=== PATIENT | male | born 1980 | race Caucasian/White ===

== ENCOUNTER → 2023-06-16 12:03 | Outpatient (REF) | payer OTHER, SELFPAY | LOC: DHCBC/DCA 12:03 | PROVIDERS: ATTENDING PHYSICIAN Internal Medicine Cardiovascular Disease; FAMILY PHYSICIAN Family Medicine | DX: I10 Essential (primary) hypertension (principal); I51.7 Cardiomegaly; R93.1 Abnormal findings on diagnostic imaging of heart and coronary circulation | CPT/HCPCS: 78452; 93017; A9500 ==

== ENCOUNTER → 2025-01-14 07:43 | Outpatient (REF) | payer OTHER, SELFPAY | LOC: HWRCS 07:43 | PROVIDERS: ATTENDING PHYSICIAN Physician Assistant Medical; FAMILY PHYSICIAN Family Medicine | DX: I25.10 Atherosclerotic heart disease of native coronary artery without angina pectoris (principal); R07.9 Chest pain, unspecified | CPT/HCPCS: 78452; 93017; A9500 ==

== ENCOUNTER 2025-01-15 07:45 | Day surgery (SDC) | payer OTHER, SELFPAY ==
[2025-01-15] VITALS (13 sets, daily range): BP systolic 102–147; BP diastolic 65–91; BMI 34.7
[2025-01-15 08:10] LABS: Hematocrit 42.6 % (39.0-52.0); Hemoglobin 14.2 g/dL (13.0-18.0); Mean Corp Hgb Conc. 33.3 g/dL (33.0-37.0); Mean Corpuscular Volume 82.2 fL (80.0-94.0); Platelet Count 319 10^3/uL (130-400); Red Cell Dist. Width 12.4 % (11.5-14.5)
[2025-01-15 08:21] LABS: INR 1.03; PT 13.8 Sec (11.4-14.6)
[2025-01-15 08:22] LABS: APTT 39.5 Sec (23.4-35.0)
[2025-01-15 08:27] LABS: ALT (SGPT) 29 U/L (0-50); AST (SGOT) 25 U/L (17-59); Albumin 5.1 g/dl (3.5-5.0); Alkaline Phosphatase 62 U/L (38-126); Blood Urea Nitrogen 10 mg/dl (9-20); Calcium 10.1 mg/dl (8.4-10.2); Carbon Dioxide 28 mmol/L (22-30); Chloride 103 mmol/L (98-107); Estimated Creatinine Clearance > 125 ml/min; Glucose 117 mg/dl (70-99); Potassium 4.2 mmol/L (3.5-5.1); Sodium 143 mmol/L (135-145); Total Protein 8.3 g/dl (6.3-8.2); eGFR > 60.00
[2025-01-15] MEDS: NSS 310 ML IV (08:50)
[2025-01-15] MEDS: NSS 1000 IV (11:26)
--- NOTE | 2025-01-15 11:35 | ITS.CL.CATH ---
[employer] - Catheterization
Cardiac Catheterization
Procedure Report:
LEFT HEART CATHETERIZATION
Date of Procedure: January 15, 2025
Referring: Dr. Anita Mccray
PROCEDURES:
1. Left heart catheterization with coronary and single-plane left ventriculography
INDICATION: This is a 44-year-old gentleman with a past medical history notable for hypertension and hyperlipidemia. He had a CT scan of the chest for follow-up of testicular cancer and was noted to have heavy coronary artery calcification. A
stress study was notable for reasonable exercise tolerance achieving 10 METS of physical activity with no ischemic changes noted on his electrocardiogram. However, he did notice some sharp chest discomfort early in exercise that abated with ongoing
physical exertion. Perfusion was notable for a 'very small sized' mild intensity reversible defect in the inferior apical, mid inferior basal inferior regions. He is now referred for coronary angiography.
ACCESS: Right radial artery, 6 Frisian sheath
HEMODYNAMICS : (mmHg)
AO (s/d) : 111/79
LV (s/d) : 133/5
LVEDP : 15
CORONARY FINDINGS
DOMINANCE: Right
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
LEFT ANTERIOR DESCENDING: The LAD arises normally from the left main and runs in the anterior interventricular groove. The LAD is aneurysmal as it arises from the left main into the proximal portion of the vessel. The mid LAD has a 30% stenosis.
The remainder of the LAD has luminal irregularities over its course but no focal obstructive stenosis and the distal vessel wraps around the apex and supplies a significant portion of the inferior wall
CIRCUMFLEX: The proximal circumflex is aneurysmal as it arises from the left main the circumflex supplies a single sizable obtuse marginal branch. Minor irregularities are noted
RIGHT CORONARY ARTERY: The right coronary artery is a dominant vessel that has minor irregularities over its course but no focal obstructive stenosis
VENTRICULOGRAPHY: Left ventriculography was performed in an MAGANA projection. The estimated ejection fraction is 65% and no regional wall motion abnormalities are noted
SEDATION: 49 minutes of procedural sedation was utilized. An independent medical transcription editor was present to assist with and help manage the patient's level of consciousness and physiologic status.
RADIATION SUMMARY: Fluoro Time (min): 3.7, Dose (mGy): 600.4, DAP (Gy.cm2) : 40.6
Closure Device: TR band
CONCLUSIONS
1. 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 Otherwise no significant obstructive coronary atherosclerotic disease is noted.
2. Preserved LV systolic function
RECOMMENDATIONS
1. Continue aspirin given the left main, LAD, circumflex aneurysm
2. Needs aggressive blood pressure control and management of lipids
Copy to: Dr. Anita Mccray
== END 2025-01-15 14:19 | disposition home or self-care (01) ==
LOC: CATH 07:45
PROVIDERS: ATTENDING PHYSICIAN Internal Medicine Interventional Cardiology; FAMILY PHYSICIAN Family Medicine; OTHER PHYSICIAN Internal Medicine Cardiovascular Disease
DX: I25.10 Atherosclerotic heart disease of native coronary artery without angina pectoris (principal); E78.5 Hyperlipidemia, unspecified; I10 Essential (primary) hypertension; Q24.5 Malformation of coronary vessels; E88.819 Insulin resistance, unspecified; Z79.82 Long term (current) use of aspirin; Z79.899 Other long term (current) drug therapy
CPT/HCPCS: 99152; 99153; 80053; 85027; 85610; 85730; 93458; C1769; C1894; Q9967